=== PATIENT | female | born 1985 ===

== ENCOUNTER → 2018-06-11 | Outpatient (CLI) | payer BC | LOC: GMAM 16:57 | PROVIDERS: ATTEND Nurse Practitioner Family | DX: D51.3 Other dietary vitamin B12 deficiency anemia (principal); E55.9 Vitamin D deficiency, unspecified ==

== ENCOUNTER → 2019-01-16 | Outpatient (CLI) | payer BC | LOC: GMAM 08:34 | PROVIDERS: ATTEND Family Medicine | DX: Z00.00 Encounter for general adult medical examination without abnormal findings (principal); E53.9 Vitamin B deficiency, unspecified; E83.51 Hypocalcemia; E55.9 Vitamin D deficiency, unspecified ==

== ENCOUNTER → 2019-06-24 | Outpatient (CLI) | payer BC | LOC: GMAM 11:19 | PROVIDERS: ATTEND Family Medicine | DX: D51.3 Other dietary vitamin B12 deficiency anemia (principal); E55.9 Vitamin D deficiency, unspecified ==

== ENCOUNTER → 2020-03-21 | Outpatient (CLI) | payer BC | LOC: GMAM 10:52 | PROVIDERS: ATTEND Family Medicine | DX: Z00.00 Encounter for general adult medical examination without abnormal findings (principal) ==

== ENCOUNTER → 2020-04-21 | Outpatient (CLI) | payer BC | LOC: GMAM 15:12 | PROVIDERS: ATTEND Family Medicine | DX: R00.2 Palpitations (principal); R06.02 Shortness of breath ==